=== PATIENT | female | born 1980 | race Caucasian/White ===

== ENCOUNTER → 2017-07-17 09:16 | Outpatient (CLI) | payer OTHER, SELFPAY ==
[2017-07-17 10:03] LABS: Add Manual Diff / Slide Review NO; Basophils Percent Auto 1.4 % (0-2); Eosinophils Percent Auto 4.4 % (2-4); Hematocrit 39.3 % (36-46); Hemoglobin 13.3 g/dL (12.0-16.0); Lymphocytes Percent Auto 45.8 % (25-40); Mean Corpuscular HGB Conc 33.9 % (30-36); Mean Corpuscular Hemoglobin 28.5 PG (26-34); Monocytes Percent Auto 10.1 % (3-14); Neutrophils Absolute Auto 2000 /uL (3000-5900); Neutrophils Percent Auto 38.3 % (50-75); Platelet Count 248 X10^3/uL (150-400); Red Blood Cell Count 4.68 X10^6/uL (4.0-5.2); Red Cell Distribution Width 12.6 % (11.6-14.8); White Blood Cell Count 5.2 X10^3/uL (4.5-11.0)
[2017-07-17 11:06] LABS: Thyroid Stimulating Hormone 0.42 uIU/mL (0.47-4.68)
[2017-07-17 14:35] LABS: Free T3, Triiodothyronine Free 5.55 pg/mL (2.77-5.27); Free T4, Direct Thyroxine 1.13 ng/dL (0.78-2.19)
== END ==
PROVIDERS: Family Provider Family Medicine; PCP Family Medicine; Visit Provider Internal Medicine
DX: N92.0 Excessive and frequent menstruation with regular cycle (principal); E03.9 Hypothyroidism, unspecified
CPT/HCPCS: 36415; 84439; 84443; 84481; 85025

== ENCOUNTER 2017-08-10 16:00 | Outpatient (RCR) | payer OTHER, SELFPAY ==
--- NOTE | 2017-06-14 15:55 | PT.OTN ---
Current Diagnoses Pain in unspecified shoulder (06/14/17) Stiffness of unspecified joint, not elsewhere classified (06/14/17) Cervicalgia (06/14/17) Dorsalgia, unspecified (06/14/17) Transition note: On June 13, 2017 our therapy services consisting of Speech, Occupational, and Physical Therapy transitioned from the [employer] electronic documentation system to a new [employer] electronic documentation system.?? All documentation prior to June 13 can be found under [employer] saved data. From June 13 forward all medical record documentation will be in [employer] [facility]1.
--- NOTE | 2017-06-15 12:18 | PT.OTN ---
Current Diagnoses Pain in unspecified shoulder (06/14/17) Stiffness of unspecified joint, not elsewhere classified (06/14/17) Cervicalgia (06/14/17) Dorsalgia, unspecified (06/14/17) Physical Therapy Treatment Note PT-OP-A Visit Information Start: 06/15/17 11:22 Freq: Status: Active Protocol: Activity Type Activity Date Activity User E-Sign Co-Sign Detail Recorded Client Recorded Date Recorded By Document 06/15/17 11:25 GGD [email or web address] 06/15/17 11:31 GGD 06/15/17 11:25 Out-Patient Physical Therapy Visit Information [Visit Information] -Visit Type Treatment Note -Visit Start Time 15:15 -Visit Stop Time 16:00 -Total Visit Minutes 45 -Visit Number per year -Number of RAILWAY PATROL OFFICER Visits 1 [Evaluation Information] -Evaluation Date 03/20/17 PT-OP-B Current Condition Start: 06/15/17 11:22 Freq: Status: Active Protocol: Activity Type Activity Date Activity User E-Sign Co-Sign Detail Recorded Client Recorded Date Recorded By Document 06/14/17 15:15 GGD [email or web address] 06/15/17 11:38 GGD 06/14/17 15:15 Current Condition [History of Current Condition] -Onset Date 02/03/17 PT-OP-C Subjective Start: 06/15/17 11:22 Freq: Status: Active Protocol: Activity Type Activity Date Activity User E-Sign Co-Sign Detail Recorded Client Recorded Date Recorded By Document 06/14/17 15:15 GGD [email or web address] 06/15/17 11:38 GGD 06/14/17 15:15 OP-PT Subjective [Patient Comments] -Patient Comments Pt states that she feels improve mobility with both pool and clinic appointments. She still having pain into her heel. -Patient Reported Progress Improving OP-PT Pain Assessment [Pain Assessment Grid] -Paper Pain Assessment Grid Completed No [Location] LBK top of hip -Pain Location Details LBK to top of posterior hip -Intensity 3 -Scale Used Numeric (1 - 10 ) -Description Aching Dull Sharp Shooting -Frequency Constant -Radiating Location done right LE into heel of foot 08/22 -Pain Aggravating Factors Activity Standing Walking Stair Climbing -Other Pain Aggravating Factors extending knee -Pain Alleviating Factors Position Sitting -Other Pain Alleviating Factors keeping knee bend PT-OP-Q Treatments Start: 06/15/17 11:22 Freq: Status: Active Protocol: Activity Type Activity Date Activity User E-Sign Co-Sign Detail Recorded Client Recorded Date Recorded By Document 06/15/17 11:40 GGD [email or web address] 06/15/17 12:11 GGArelis 06/15/17 11:40 Therapeutic Exercises [Supine Exercises] 2 -Supine Exercise Name Piriformis stretch -Side bilateral -Reps/Minutes 4 1 -Supine Exercise Name Hamstring stretch -Side bilateral -Reps/Minutes 4 [Prone Exercises] 1 -Prone Exercise Name Soleus stretch -Side left -Resistance manual -Reps/Minutes 2 Manual Therapy Treatment [Soft Tissue Mobilization] 3 -Body Location Right Piriformis -Mobilization Type Other -Intensity/Depth Deep -Body Position Sidelying -Comments Active release. L sidelying, aide to assist with hip flex to 90, knee flex, then hip ER with max tension held on piriformis 2 -Body Location entire length of right sciatic nerve -Mobilization Type Myofascial Release Rolling -Intensity/Depth Moderate -Body Position Prone 1 -Body Location Piriformis -Mobilization Type Sustained Pressure -Intensity/Depth Deep -Body Position Prone [Joint Mobilizations] 1 -Joint L4-5, L5-S1 -Direction Gap, distraction -Grade III -Body Position Sidelying -Reps/Duration 5 [Manual Traction] Lumbar -Details Right LE -Body Position Supine -Reps/Duration 2 -Comments Short axis PT-OP-T Assessment and Plan Start: 06/15/17 11:22 Freq: Status: Active Protocol: Activity Type Activity Date Activity User E-Sign Co-Sign Detail Recorded Client Recorded Date Recorded By Document 06/15/17 11:40 GGD [email or web address] 06/15/17 12:11 GGArelis 06/15/17 11:40 Physical Therapy Assessment [Assessment Summary] -Assessment Pt improving with flexibility of LE. She has increase in radicular pain into heel with SLR > 15 degrees. She is tender with STM in piriformis, hamstring and soleus. Physical Therapy Plan [Frequency and Duration] -Frequency of Treatment 2x/Week -Duration of Treatment 12 weeks -Plan of Care Start Date 03/20/17 -Plan of Care End Date 06/11/17 [Next Visit Focus/Plan] -Next Visit Plan Progress under current plan. With core stability and LE flexibility.
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
--- NOTE | 2017-06-15 16:35 | PT.OPPOC ---
Current Diagnoses Pain in unspecified shoulder (06/14/17) Stiffness of unspecified joint, not elsewhere classified (06/14/17) Cervicalgia (06/14/17) Dorsalgia, unspecified (06/14/17) Plan Of Care PT-OP-T Assessment and Plan Start: 06/15/17 11:22 Freq: Status: Active Protocol: Activity Type Activity Date Activity User E-Sign Co-Sign Detail Recorded Client Recorded Date Recorded By Document 06/15/17 16:09 [facility] [id number] 06/15/17 16:32 [facility] 06/15/17 16:09 Physical Therapy Assessment [Rehab Potential] -Rehabilitation Potential Fair [Impairments] -Impairments Activity Tolerance Functional Activities Gait Pain Posture ROM Sensation Soft Tissue Mobility Strength Tone [Goals] Four -Impairment Scauplothoracic Rhythm -Long-Term Goal (LTG) Decrease scapulothoracic winging to WNL -LTG Duration 6 weeks Three -Impairment Tenderness on Bony Structures -Long-Term Goal (LTG) Decrease tenderness with palpation of L1 - L5 to 1- Complaint of pain -LTG Duration Met Two -Impairment Muscular Spasm -Short Term Goal (STG) Decrease spasm in lumbar erector spinae, piriformis, and iliopsoas muscles to mild -STG Duration 3 weeks -Long-Term Goal (LTG) Decrease lumbar muscle spasm to trace levels -LTG Duration 6 weeks One -Impairment Pain -Short Term Goal (STG) Decreasing pain at worst to 5/ 10 -STG Duration 3 weeks -Non Acoustic Operator Goal (LTG) Pt to report no increased radicular symptoms when sitting at work for one hour -LTG Duration 6 weeks [Progress Towards Goals] -Progress Towards Goals Slow Progress due to Medical Issues [Assessment Summary] -Assessment Over the past two weeks, pt has displayed decreased radicular symptoms below her knee, and complains of less tenderness in her lumbar paraspinals. Overall, pt's progress has been slow, and tends to lose any gains made during her treatment session during the time between appointments. Physical Therapy Plan [Frequency and Duration] -Frequency of Treatment 2x/Week -Duration of Treatment 12 weeks -Plan of Care Start Date 06/14/17 -Plan of Care End Date 09/06/17 [Therapeutic Interventions] -Therapeutic Interventions Aquatic Therapy Gait Training Home Exercise Program Joint Mobilizations Manual Therapy Neuromuscular Re-education Patient/ Caregiver Education Self-Care/Home Management Sensory Integration Soft Tissue Mobilization Therapeutic Activities Therapeutic Exercises -Modalities Cold Pack/Ice Massage Electric Stimulation Hot Packs Ultrasound [Next Visit Focus/Plan] -Next Visit Plan Continued focus on Manual therapy to decrease rtone and pain, TherEx for stabilization, and continued aquatic therapy . Plan of Care Dates Plan of Care Start Date 06/14/17 Plan of Care End Date 09/06/17 Please Sign and Return: I have reviewed this Plan of Care and certify that the skilled therapy services above are required to meet the patient???s needs. Physician Signature Date Printed Name and Credentials
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
--- NOTE | 2017-06-30 15:04 | PT.OTN ---
Current Diagnoses Pain in unspecified shoulder (06/30/17) Stiffness of unspecified joint, not elsewhere classified (06/30/17) Cervicalgia (06/30/17) Dorsalgia, unspecified (06/30/17) Physical Therapy Treatment Note PT-OP-A Visit Information Start: 06/15/17 11:22 Freq: Status: Active Protocol: Document 06/30/17 10:34 [facility] (Rec: 06/30/17 15:02 [facility] [email or web address]) Out-Patient Physical Therapy Visit Information Visit Information Visit Type Treatment Note Visit Start Time 09:50 Visit Stop Time 10:44 Total Visit Minutes 54 Visit Number 27/pp per year Number of HUMAN RESOURCES FILE CLERK Visits 0 PT-OP-C Subjective Start: 06/15/17 11:22 Freq: Status: Active Protocol: Document 06/30/17 10:34 [facility] (Rec: 06/30/17 15:00 [facility] [email or web address]) OP-PT Subjective Patient Comments Patient Comments Pt has been working on increasing her flexibility as her MD prescribed. She c/o anterior and inner thigh pain on the R this session, she notes started after aquatic therapy earlier this week. PT-OP-J Posture/Palpation/Skin Start: 06/15/17 11:22 Freq: Status: Active Protocol: Document 06/30/17 10:34 [facility] (Rec: 06/30/17 15:00 [facility] [email or web address]) Palpation Assessment Location One Palpation Location sciatic nerve @ posterior R knee Palpation Findings Soft Tissue Tightness Tenderness Palpation Details c/o severe increase in pain. PT-OP-L Special Tests Start: 06/15/17 11:22 Freq: Status: Active Protocol: Document 06/30/17 10:34 RCC (Rec: 06/30/17 15:02 [facility] [email or web address]) Special Tests Neural Special Tests- Lower Body Other- 1 Test Results negative Comments Obturator Nerve Tension. RLE Femoral Nerve Tension Test Results negative Comments RLE PT-OP-Q Treatments Start: 06/15/17 11:22 Freq: Status: Active Protocol: Document 06/30/17 10:34 [facility] (Rec: 06/30/17 15:00 [facility] [email or web address]) Therapeutic Exercises Supine Exercises 4 Supine Exercise Name psoas stretch Side right Reps/Minutes 5 min Standing Exercises 2 Standing Exercise Name Adductor stretch Side right Reps/Minutes 2 min 1 Standing Exercise Name Rectus Femoris stretch Side right Reps/Minutes 3 min Manual Therapy Treatment Soft Tissue Mobilization 4 Body Location R Quatratus lumborum Mobilization Type Strumming Intensity/Depth Moderate 3 Body Location Right Piriformis Mobilization Type Other Intensity/Depth Deep Body Position Sidelying Comments Active release. L sidelying, aide to assist with hip flex to 90, knee flex, then hip ER with max tension held on piriformis 2 Body Location entire length of right sciatic nerve Mobilization Type Myofascial Release Rolling Intensity/Depth Moderate Body Position Prone 1 Body Location Piriformis Mobilization Type Sustained Pressure Intensity/Depth Deep Body Position Prone PT-OP-R Modalities Start: 06/15/17 11:22 Freq: Status: Active Protocol: Document 06/30/17 10:34 [facility] (Rec: 06/30/17 15:00 [facility] [email or web address]) Hot Pack/Cold Pack Treatment Cold Pack Location L/S and hip Patient Position Hooklying Treatment Duration (minutes) 10 Patient Tolerance Good PT-OP-T Assessment and Plan Start: 06/15/17 11:22 Freq: Status: Active Protocol: Document 06/30/17 10:34 [facility] (Rec: 06/30/17 15:00 [facility] [email or web address]) Physical Therapy Assessment Assessment Summary Assessment Pt with high levels of pain to palpation in the popliteal region of the R knee. Pt's c/o R thigh pain likely due to muscular strain, and negative testing for obturator and femoral nerve. Physical Therapy Plan Frequency and Duration Frequency of Treatment 2x/Week Duration of Treatment 12 weeks Plan of Care Start Date 06/14/17 Plan of Care End Date 09/06/17 Next Visit Focus/Plan Next Visit Plan HS flexibility, nerve glides, core stability.
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
== END 2017-08-11 11:04 ==
LOC: PHYS 16:00
PROVIDERS: Family Provider Family Medicine; PCP Family Medicine; Visit Provider Family Medicine
DX: M54.9 Dorsalgia, unspecified (principal); M54.2 Cervicalgia; M25.60 Stiffness of unspecified joint, not elsewhere classified; M25.519 Pain in unspecified shoulder
CPT/HCPCS: 97010; 97110; 97113; 97116; 97140

== ENCOUNTER → 2018-04-09 17:02 | Outpatient (CLI) | payer OTHER, SELFPAY ==
[2018-04-09 19:06] LABS: Free T3, Triiodothyronine Free 3.56 pg/mL (2.77-5.27); Free T4, Direct Thyroxine 0.91 ng/dL (0.78-2.19)
[2018-04-09 19:20] LABS: Thyroid Stimulating Hormone 0.51 uIU/mL (0.47-4.68)
== END ==
PROVIDERS: PCP Family Medicine; Visit Provider Family Medicine
DX: E03.9 Hypothyroidism, unspecified (principal)
CPT/HCPCS: 36415; 84439; 84443; 84481

== ENCOUNTER → 2018-10-16 12:34 | Outpatient (CLI) | payer OTHER, SELFPAY | PROVIDERS: PCP Family Medicine; Visit Provider Family Medicine | DX: N91.2 Amenorrhea, unspecified (principal) | CPT/HCPCS: 36415; 83001; 83002 ==

== ENCOUNTER → 2020-08-07 07:36 | Outpatient (CLI) | payer OTHER, SELFPAY ==
[2020-08-07 08:06] LABS: Add Manual Diff / Slide Review NO; Basophils Absolute Auto 100 /uL (0-100); Basophils Percent Auto 0.9 % (0-2); Eosinophils Absolute Auto 200 /uL (0-450); Eosinophils Percent Auto 2.4 % (2-4); Hematocrit 40.8 % (36-46); Hemoglobin 13.9 g/dL (12.0-16.0); Lymphocytes Absolute Auto 2600 /uL (1100-4500); Lymphocytes Percent Auto 32.8 % (25-40); Mean Corpuscular HGB Conc 34.1 % (30-36); Mean Corpuscular Hemoglobin 29.3 PG (26-34); Mean Corpuscular Volume 85.7 fL (80-100); Monocytes Absolute Auto 500 /uL (0-900); Monocytes Percent Auto 5.9 % (3-14); Neutrophils Absolute Auto 4500 /uL (1500-7000); Platelet Count 203 X10^3/uL (150-400); Red Blood Cell Count 4.76 X10^6/uL (4.0-5.2); Red Cell Distribution Width 12.6 % (11.6-14.8); White Blood Cell Count 7.8 X10^3/uL (4.5-11.0)
[2020-08-07 08:22] LABS: Hemoglobin A1C% w Est Avg Glu 4.9 % (4.0-6.0)
[2020-08-07 08:57] LABS: High Sensitivity CRP - Cardiac 1.5 mg/L (1.0-3.0)
[2020-08-07 09:11] LABS: Progesterone, Total 0.98 ng/mL
[2020-08-07 09:13] LABS: Free T3, Triiodothyronine Free 3.99 pg/mL (2.77-5.27); Free T4, Direct Thyroxine 0.77 ng/dL (0.78-2.19); T4 Total Thyroxine 6.51 ug/dL (5.5-11.0); T7 (Free Thyroxine Index) 2.22 (1.65-3.89); Triiodothryronine T3 Uptake 34.1 % (23.5-40.5)
[2020-08-07 09:25] LABS: Cortisol AM (Before 10AM) 14.9 ug/dL (4.46-22.7)
[2020-08-07 09:26] LABS: Thyroid Stimulating Hormone 1.51 uIU/mL (0.47-4.68)
[2020-08-07 09:27] LABS: Estradiol, Total 99.6 pg/mL
[2020-08-07 10:00] LABS: Folate > 20.0 ng/mL (2.76-20.0); Vitamin B12 > 1000 pg/mL (239-931)
[2020-08-08 03:43] LABS: Homocysteine 6.1 umol/L (0.0-14.5)
[2020-08-08 06:35] LABS: Sex Hormone Binding Globulin 74.2 nmol/L (24.6-122.0); Thyroid Peroxidase Antibodies <9 IU/mL (0-34); Triiodothyronine T3 Total 125 ng/dL (71-180)
[2020-08-08 06:36] LABS: Dehydroepiandrosterone Sulfate 54.6 ug/dL (57.3-279.2)
[2020-08-08 17:36] LABS: Anti Thyroglobulin Antibody <1.0 IU/mL (0.0-0.9)
[2020-08-11 16:07] LABS: Triiodothyronine T3 Reverse 15.4 ng/dL (9.2-24.1)
[2020-08-11 19:04] LABS: 1,25-Dihydroxy, Vitamin D-2 <10 pg/mL (.)
[2020-08-12 00:36] LABS: Vitamin B6 93.6 ug/L (2.0-32.8)
[2020-08-12 05:11] LABS: Magnesium, RBC 6.1 mg/dL (4.2-6.8)
[2020-08-13 08:06] LABS: Testosterone Free 0.25 ng/dL (0.10-0.85); Testosterone Total 17.7 ng/dL (.)
== END ==
PROVIDERS: PCP Family Medicine; Referring Provider Naturopath; Visit Provider Naturopath
DX: E03.9 Hypothyroidism, unspecified (principal); N95.8 Other specified menopausal and perimenopausal disorders; J45.20 Mild intermittent asthma, uncomplicated; J45.990 Exercise induced bronchospasm
CPT/HCPCS: 36415; 82533; 82607; 82627; 82652; 82670; 82746; 83001; 83036; 83090; 83735; 84144; 84207; 84270; 84402; 84403; 84436; 84439; 84443; 84479; 84480; 84481; 84482; 85025; 86140; 86376; 86800

== ENCOUNTER → 2021-01-22 07:43 | Outpatient (CLI) | payer OTHER, SELFPAY ==
--- NOTE | 2021-01-22 07:45 | DI.MG.S_ITS ---
BILATERAL DIGITAL SCREENING MAMMOGRAM 3D/2D WITH CAD: 01/22/2021 CLINICAL: Routine screening. Baseline exam. No prior exams were available for comparison. The tissue of both breasts is heterogeneously dense. This may lower the sensitivity of mammography. Current study was also evaluated with a Computer Aided Detection (CAD) system. No significant masses, calcifications, or other findings are seen in either breast. IMPRESSION: NEGATIVE There is no mammographic evidence of malignancy. A 1 year screening mammogram is recommended. This exam was interpreted at Station ID: [id number]. NOTE: For mammograms, a report in lay terms will be sent to the patient. Approximately 15% of breast malignancies will not be visualized mammographically. In the management of a palpable breast mass, a negative mammogram must not discourage biopsy of a clinically suspicious lesion. Electronically Signed By: Dylan darling/ronnie:01/22/2021 09:07:00 letter sent: Normal Exam ACR BI-RADS Category 1: Negative [id number]
== END ==
PROVIDERS: PCP Family Medicine; Referring Provider Family Medicine; Visit Provider Family Medicine
DX: Z12.31 Encounter for screening mammogram for malignant neoplasm of breast (principal)
CPT/HCPCS: 77063; 77067

== ENCOUNTER 2021-07-13 13:09 | Day surgery (SDC) | payer OTHER, SELFPAY ==
[2021-07-13] VITALS (7 sets, daily range): BP systolic 116–129; BP diastolic 62–79; PULSE 60–71; RESP 12–16; TEMP 36.2–36.8; O2SAT 96–997; BMI 31.8
[2021-07-13 13:38] LABS: COVID19 -Nasal RAPID Negative (Negative)
[2021-07-13] MEDS: LACTATED RINGERS 1,000 ML 200 ML IV (13:38)
--- NOTE | 2021-07-13 13:39 | SUR.PREOP ---
patient states Post menopausal for 5 years. states does have occasional spotting. states has had vasectomy and she has never had children by choice. refuses HCG at this time.
--- NOTE | 2021-07-13 14:29 | PM.HP.1 ---
History of Present Illness History of Present Illness Date Patient Seen: 07/13/21 Time Patient Seen: 14:30 Chief complaint: SDC Narrative: 40-year-old woman with intermittent bright red blood per rectum here for colonoscopy possible hemorrhoidal banding. No interval changes in health. Please refer to the H& P from May 2021 for further detail. Patient History Medical History Arthralgia Chicken pox Eczema Fractures (~08/18/13) GERD (gastroesophageal reflux disease) Hay fever with asthma Hearing loss Raynaud's disease Vision disorder Surgical History Anesthesia Deviated septum History of ear surgery History of sinus surgery History of tympanoplasty Injury of right clavicle Ruptured ear drum Family & Social History Family History Mother Age: 69 Hypertension High cholesterol Sister Age: 44 High cholesterol Social History: household members spouse Tobacco & Substance use: Smoking Status Never smoker alcohol intake current alcohol intake frequency a few times a week Substance Use Type does not use Meds Home Medications and Allergies Home Medications Medication Instructions Recorded Confirmed Type Bifidobacterium infantis 4 mg 4 mg PO Q DAY #0 04/18/16 06/10/21 History capsule (Align) ascorbic acid (vitamin C) 500 mg 500 mg PO QID #0 04/18/16 06/10/21 History tablet cetirizine 10 mg capsule (Zyrtec) 20 mg PO BID cap 04/19/18 06/10/21 History apple cider vinegar 600 mg capsule 1,300 mg PO cap 10/16/18 06/10/21 History hydroxyzine HCl 10 mg tablet 10 mg PO BEDTIME #30 tab 10/16/18 06/10/21 Rx omega-3 fatty acids 1,000 mg 2,000 mg PO DAILY 10/16/18 07/13/21 History capsule (Fish Oil Concentrate) albuterol sulfate 90 mcg/actuation 2 puff INHALATION QID PRN #8.5 gram 04/26/19 06/10/21 Rx aerosol inhaler cholecalciferol (vitamin D3) 125 125 mcg PO BID cap 01/20/21 06/10/21 History mcg (5,000 unit) capsule mecobalamin (vitamin B12) 5,000 5,000 mcg PO BID tab 01/20/21 06/10/21 History mcg disintegrating tablet rye grass extract 500 mg-quercetin 1 tab PO DAILY tab 01/20/21 06/10/21 History 250 mg tablet zinc 15 mg tablet 15 mg PO DAILY 01/20/21 06/10/21 History resveratrol-quercetin 100 mg-100 1 tab PO DAILY tab 04/05/21 07/13/21 History mg tablet thyroid (pork) 60 mg tablet See Rx Instructions .ROUTE 04/05/21 07/13/21 History ([place] Thyroid) .COMPLEX tab montelukast 10 mg tablet See Rx Instructions .ROUTE 05/07/21 07/13/21 Rx .COMPLEX #90 tab sodium,potassium,mag sulfates 17.5 See Rx Instructions PO .COMPLEX 06/10/21 Rx gram-3.13 gram-1.6 gram oral soln #354 ml (Suprep Bowel Prep Kit) omeprazole 20 mg capsule,delayed See Rx Instructions .ROUTE 06/15/21 07/13/21 Rx release .COMPLEX PRN #30 cap thyroid (pork) 60 mg tablet 60 mg PO DAILY 07/13/21 07/13/21 History ([place] Thyroid) Allergies Allergy/AdvReac Type Severity Reaction Status Date / Time doxycycline [DOXYCYCLINE] Allergy Mild Rash Verified 06/10/21 14:24 adhesive tape [ADHESIVE TAPE] Allergy Unknown Verified 06/10/21 14:24 Exam Vital Signs (past 8 hours): - 07/13/21 13:25 Temperature 97.2 F L Pulse Rate 62 Respiratory Rate 16 Blood Pressure 129/77 Pulse Oximetry 98 Oxygen Delivery Method Room Air Narrative Exam Narrative: General adult woman alert oriented no acute distress Chest nonlabored respirations Abdomen soft nontender nondistended. Objective Labs Labs: Laboratory Results - last 24 hr 07/13/21 13:21 SARS-CoV-2 (PCR) Negative Assessment & Plan Assessment and plan (1) Rectal bleeding: Status: Acute Assessment & Plan narrative: 40-year-old woman with intermittent bright red blood per rectum here for diagnostic colonoscopy possible hemorrhoidal banding. Technical details of the procedure were discussed with the patient. Operative risks including bleeding, missed diagnosis, intestinal perforation were discussed. Her questions have been answered she is in agreement with this plan Time Spent With Patient Critical Care time: I spent a total of [] minutes of critical care time on this patient's care today; this time is exclusive of procedural time.
[2021-07-13] MEDS: ONDANSETRON 4 MG/2 ML INJ IV (14:47)
[2021-07-13] MEDS: fentaNYL 250 MCG/5 ML INJ 200 MCG IV (14:56)
[2021-07-13] MEDS: MIDAZOLAM 5 MG/5 ML VIAL 6 MG IV (14:56)
[2021-07-13] MEDS: MIDAZOLAM 5 MG/5 ML VIAL 7 MG IV (15:11)
[2021-07-13] MEDS: fentaNYL 250 MCG/5 ML INJ 50 MCG IV (15:11)
--- NOTE | 2021-07-13 15:18 | PM.OP.COLON ---
Operative Date/Time/Diagnoses Date of procedure: 07/13/21 Time of procedure: 15:18 Pre-op diagnosis: Rectal bleeding Post-op diagnosis: same Procedure & Clinicians Study performed: Colonoscopy internal hemorrhoidal banding Same procedure as scheduled: Yes Indications: Intermittent rectal bleeding Surgeon: Viktor Nolasco Procedure Notes Procedure in detail: Medications: Conscious sedation using 7mg IV midazolam and 250mcg IV of fentanyl The history and physical was performed/updated and the patient is ASA class is 2. The procedure was discussed in detail with the patient. Potential risks complications including infection, bleeding, missed diagnosis, perforation, need for surgery, and were explained. Their questions were answered and informed consent was obtained. Patient was brought to the procedure room and placed standard monitoring equipment. The patient's vital signs were monitored continuously throughout the entire procedure. Prior to starting time-out was performed. The patient was placed in the left lateral recumbent position. Procedural sedation was administered. Examination began with a thorough inspection of the perianal area there was no evidence of fissures, fistulae, external hemorrhoids or cutaneous malignancy. The colonoscopy scope was then placed into the anal canal and was advanced to the cecum, which was identified by the ileocecal valve, the appendiceal orifice and the confluence of the taenia. The scope was then slowly withdrawn examining colon thoroughly in all directions, irrigating it of any residual stool. FINDINGS 1. No masses or polyps 2. Internal hemorrhoid Following the completion of the colonoscopy anoscope was inserted. The right posterior hemorrhoidal column was prominent it was grasped and doubly ligated at its base. The remainder of the internal hemorrhoid tissue was quite mild in nature and not amenable to banding. There is an external skin tag which was not addressed. The patient tolerated the procedure well. They will be discharged once criteria are met. The prep was of good/excellent quality. The withdrawl time was * minutes. The sedation time was * minutes. Specimen(s): none sent Complications: none Impression: Internal hemorrhoids Post-procedure Recommendations: High fiber diet Plan for aftercare: [id number] Tylenol and ibuprofen as needed for pain control Follow up: weeks (2 weeks) Disposition: same day surgery
== END 2021-07-13 16:01 | disposition home or self-care (01) ==
PROVIDERS: PCP Family Medicine; Referring Provider Surgery; Visit Provider Surgery
PROC: 0DJD8ZZ Inspection of Lower Intestinal Tract, Via Natural or Artificial Opening Endoscopic (ICD-10-PCS; CPT 45378; principal; 2021-07-13 14:30)
DX: K64.8 Other hemorrhoids (principal); Z20.822 Contact with and (suspected) exposure to COVID-19
CPT/HCPCS: 45398; 87635; C9803; J2250; J2405; J3010

== ENCOUNTER → 2022-01-04 07:19 | Outpatient (CLI) | payer OTHER, SELFPAY ==
[2022-01-04 07:55] LABS: Add Manual Diff / Slide Review NO; Basophils Absolute Auto 100 /uL (0-100); Basophils Percent Auto 0.9 % (0-2); Eosinophils Absolute Auto 200 /uL (0-450); Hematocrit 40.6 % (36-46); Hemoglobin 13.9 g/dL (12.0-16.0); Lymphocytes Absolute Auto 2500 /uL (1100-4500); Lymphocytes Percent Auto 37.6 % (25-40); Mean Corpuscular HGB Conc 34.3 % (30-36); Mean Corpuscular Hemoglobin 29.6 PG (26-34); Mean Corpuscular Volume 86.4 fL (80-100); Monocytes Absolute Auto 400 /uL (0-900); Monocytes Percent Auto 6.8 % (3-14); Neutrophils Absolute Auto 3400 /uL (1500-7000); Neutrophils Percent Auto 51.7 % (50-75); Platelet Count 197 X10^3/uL (150-400); Red Cell Distribution Width 12.5 % (11.6-14.8); White Blood Cell Count 6.6 X10^3/uL (4.5-11.0)
[2022-01-04 08:20] LABS: Alanine Aminotransferase 44 IU/L (<35); Albumin 3.9 g/dL (3.5-5.0); Albumin Globulin Ratio 1.3 (1.0-2.8); Alkaline Phosphatase 104 U/L (38-126); Aspartate Aminotransferase 33 IU/L (14-36); Bilirubin Total 0.3 mg/dL (0.2-1.3); Blood Urea Nitrogen 20 mg/dL (7-17); Calcium 9.8 mg/dL (8.4-10.2); Carbon Dioxide 24 mmol/L (22-32); Chloride 107 mmol/L (98-107); Cholesterol 222 mg/dL (140-199); Estimated Glomerular Filt Rate > 60 mL/min (>60); Globulin 2.9 g/dL (1.7-4.1); Glucose 87 mg/dL (70-100); HDL Cholesterol 60 mg/dL (40-60); HEMOLYSIS < 15 (0-50); LDL Cholesterol Calculated 127 mg/dL (<100); Potassium 4.5 mmol/L (3.4-5.1); Sodium 138 mmol/L (137-145); Total Protein 6.8 g/dL (6.3-8.2); Triglycerides 177 mg/dL (35-150)
[2022-01-04 08:37] LABS: Vitamin D 25 Hydroxy (D3) 56.7 ng/mL (30.0-100.0)
[2022-01-04 08:52] LABS: TSH w/ Reflex to FT4 2.95 uIU/mL (0.47-4.68)
== END ==
PROVIDERS: PCP Family Medicine; Referring Provider Family Medicine; Visit Provider Family Medicine
DX: E03.9 Hypothyroidism, unspecified (principal); E55.9 Vitamin D deficiency, unspecified; E78.1 Pure hyperglyceridemia; G47.00 Insomnia, unspecified; Z79.899 Other long term (current) drug therapy
CPT/HCPCS: 36415; 80053; 80061; 82306; 84443; 85025

== ENCOUNTER → 2022-12-30 07:35 | Outpatient (CLI) | payer OTHER, SELFPAY ==
[2022-12-30 08:38] LABS: Add Manual Diff / Slide Review NO; Basophils Absolute Auto 0 /uL (0-100); Basophils Percent Auto 0.7 % (0-2); Eosinophils Absolute Auto 300 /uL (0-450); Eosinophils Percent Auto 5.1 % (2-4); Hematocrit 42.5 % (36-46); Hemoglobin 14.5 g/dL (12.0-16.0); Lymphocytes Absolute Auto 2200 /uL (1100-4500); Lymphocytes Percent Auto 32.8 % (25-40); Mean Corpuscular HGB Conc 34.1 % (30-36); Mean Corpuscular Hemoglobin 29.9 PG (26-34); Mean Corpuscular Volume 87.7 fL (80-100); Monocytes Absolute Auto 400 /uL (0-900); Neutrophils Absolute Auto 3800 /uL (1500-7000); Neutrophils Percent Auto 55.4 % (50-75); Platelet Count 203 X10^3/uL (150-400); Red Blood Cell Count 4.85 X10^6/uL (4.0-5.2); Red Cell Distribution Width 12.6 % (11.6-14.8); White Blood Cell Count 6.8 X10^3/uL (4.5-11.0)
[2022-12-30 08:45] LABS: Alanine Aminotransferase 42 IU/L (<35); Albumin 4.2 g/dL (3.5-5.0); Albumin Globulin Ratio 1.3 (1.0-2.8); Alkaline Phosphatase 110 U/L (38-126); Aspartate Aminotransferase 32 IU/L (14-36); BUN Creatinine Ratio 24.4 (6-22); Bilirubin Total 0.7 mg/dL (0.2-1.3); Blood Urea Nitrogen 20 mg/dL (7-17); Calcium 10.2 mg/dL (8.4-10.2); Carbon Dioxide 27 mmol/L (22-32); Chloride 106 mmol/L (98-107); Cholesterol 257 mg/dL (140-199); Estimated Glomerular Filt Rate > 60 mL/min (>60); Globulin 3.2 g/dL (1.7-4.1); Glucose 96 mg/dL (70-100); HDL Cholesterol 63 mg/dL (40-60); HEMOLYSIS < 15 (0-50); LDL Cholesterol Calculated 142 mg/dL (<100); Potassium 4.3 mmol/L (3.4-5.1); Sodium 138 mmol/L (137-145); Total Protein 7.4 g/dL (6.3-8.2); Triglycerides 261 mg/dL (35-150)
[2022-12-30 09:03] LABS: Vitamin D 25 Hydroxy (D3) 49.4 ng/mL (30.0-100.0)
[2022-12-30 09:07] LABS: TSH w/ Reflex to FT4 1.64 uIU/mL (0.47-4.68)
[2022-12-30 09:26] LABS: Vitamin B12 > 1000 pg/mL (239-931)
== END ==
PROVIDERS: PCP Family Medicine; Referring Provider Family Medicine; Visit Provider Family Medicine
DX: R53.82 Chronic fatigue, unspecified (principal); E78.1 Pure hyperglyceridemia; E03.9 Hypothyroidism, unspecified; E53.8 Deficiency of other specified B group vitamins; E55.9 Vitamin D deficiency, unspecified; E28.319 Asymptomatic premature menopause
CPT/HCPCS: 36415; 80053; 80061; 82306; 82607; 84443; 85025

== ENCOUNTER → 2023-09-28 07:41 | Outpatient (CLI) | payer OTHER, SELFPAY | PROVIDERS: Family Provider Family Medicine; PCP Family Medicine; Referring Provider Family Medicine; Visit Provider Family Medicine | DX: G56.20 Lesion of ulnar nerve, unspecified upper limb (principal) | CPT/HCPCS: 95886; 95910 ==

== ENCOUNTER → 2024-01-17 17:11 | Outpatient (CLI) | payer OTHER, SELFPAY ==
--- NOTE | 2024-01-17 17:12 | DI.MRI.S_ITS ---
PROCEDURE: MR FOREARM LT WO/W CON INDICATIONS: arm pain - possible cysts TECHNIQUE: Noncontrast coronal T1 spin echo and STIR, sagittal T1 spin echo with fat saturation and STIR, axial T1 spin echo and T2 fast spin echo with fat saturation. After the administration of contrast, axial/sagittal/coronal T1 spin echo with fat saturation through the left forearm.. COMPARISON: [facility], CR, XR HAND 1 OR 2 VIEWS LEFT, 12/29/2023, 11:08. [facility], CR, XR ELBOW 1 OR 2 VIEWS LEFT, 12/29/2023, 11:08. FINDINGS: Image quality: Excellent. 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 No marrow edema. No fracture or dislocation. No suspicious intraosseous lesion. No area of abnormal intraosseous enhancement. Soft tissues: No soft tissue masses are visualized. The scanned muscles demonstrate normal overall bulk and internal signal. Subcutaneous tissues appear normal as well. No abnormal soft tissue enhancement. IMPRESSION: 1. No marrow edema. No fracture or dislocation. 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 No suspicious intraosseous lesion or area of abnormal intraosseous enhancement. 2. No soft tissue mass or drainable fluid collection. No evidence of ganglion cyst. No area of abnormal intramuscular enhancement. Dictated by: Peter Acevedo M.D. on 01/18/2024 at 11:25 Approved by: Peter Acevedo M.D. on 01/18/2024 at 11:31
== END ==
PROVIDERS: Family Provider Family Medicine; PCP Family Medicine; Referring Provider Orthopaedic Surgery; Visit Provider Orthopaedic Surgery
DX: M25.522 Pain in left elbow (principal); R22.32 Localized swelling, mass and lump, left upper limb; R20.0 Anesthesia of skin
CPT/HCPCS: 73220; A9579

== ENCOUNTER → 2024-10-21 09:25 | Outpatient (CLI) | payer OTHER, SELFPAY ==
[2024-10-21 09:50] LABS: Add Manual Diff / Slide Review NO; Hematocrit 40.5 % (36-46); Hemoglobin 14.1 g/dL (12.0-16.0); Lymphocytes Absolute Auto 2000 /uL (1100-4500); Mean Corpuscular HGB Conc 34.7 % (30-36); Mean Corpuscular Hemoglobin 30.0 PG (26-34); Mean Corpuscular Volume 86.4 fL (80-100); Platelet Count 205 X10^3/uL (150-400)
[2024-10-21 10:28] LABS: Alanine Aminotransferase 39 IU/L (<35); Albumin 4.3 g/dL (3.5-5.0); Albumin Globulin Ratio 1.6 (1.0-2.8); Alkaline Phosphatase 127 U/L (38-126); Blood Urea Nitrogen 19 mg/dL (7-17); Calcium 10.1 mg/dL (8.4-10.2); Carbon Dioxide 23 mmol/L (22-32); Chloride 106 mmol/L (98-107); Cholesterol 247 mg/dL (140-199); Estimated Glomerular Filt Rate > 60 mL/min (>60); Globulin 2.7 g/dL (1.7-4.1); Glucose 93 mg/dL (70-99); HDL Cholesterol 61 mg/dL (40-60); HEMOLYSIS < 15 (0-50); Potassium 4.1 mmol/L (3.4-5.1); Sodium 138 mmol/L (137-145); Total Protein 7.0 g/dL (6.3-8.2); Triglycerides 199 mg/dL (35-150)
[2024-10-21 10:39] LABS: Vitamin D 25 Hydroxy (D3) 47.1 ng/mL (30.0-100.0)
[2024-10-21 10:54] LABS: TSH w/ Reflex to FT4 1.55 uIU/mL (0.47-4.68)
[2024-10-21 11:30] LABS: Folate > 20.0 ng/mL (2.76-20.0); Vitamin B12 684 pg/mL (239-931)
== END ==
PROVIDERS: PCP Family Medicine; Referring Provider Family Medicine; Visit Provider Family Medicine
DX: E03.9 Hypothyroidism, unspecified (principal); E55.9 Vitamin D deficiency, unspecified; E53.8 Deficiency of other specified B group vitamins; R53.82 Chronic fatigue, unspecified; E28.319 Asymptomatic premature menopause
CPT/HCPCS: 36415; 80053; 80061; 82306; 82607; 82746; 84443; 85025